=== PATIENT | female | born 1950 | race Caucasian/White ===

== ENCOUNTER 2024-12-27 10:26 | Emergency (ER) | payer BC, MEDICARE ==
[~2024-12-27] VITALS: Ht 162.6 cm; Wt 104.5 kg
[2024-12-27 11:02] LABS: MEAN PLATELET VOLUME 6.6 FL (7.4-10.4); RED CELL DISTRIBUTION WIDTH 15.7 % (11.5-14.5)
[2024-12-27 11:08] LABS: LEUKOCYTE ESTERASE ,URINE NEGATIVE (Neg); NITRITES, URINE NEGATIVE (Neg); OCCULT BLOOD,URINE SMALL (Neg)
[2024-12-27 11:12] LABS: UA COLLECTION TYPE CLN CATCH MIDSTREAM
[2024-12-27 11:14] LABS: SQUAMOUS EPITHELIAL CELL,UR MANY /LPF (FEW)
[2024-12-27 11:15] LABS: INR 1.0 INR
[2024-12-27 11:17] LABS: APTT 29 SECONDS (22-32); CREATININE 0.88 MG/DL (0.40-0.90); TOTAL CARBON DIOXIDE 24.6 MMOL/L (24-32); eCRCL 47 ML/MIN; eGFR 62 ML/MIN
[2024-12-27 11:23] LABS: URIC ACID CRYSTALS FEW /HPF (NEGATIVE)
--- NOTE | 2024-12-27 14:23 | Physician Documentation ---
History of Present Illness Chief Complaint: Abdominal Pain Stated Complaint: ABD PAIN Time Seen by MD: 11:37 OK to notify your PCP?: Yes Primary Medical Doctor: gladis gotti Source: patient Mode of Arrival: POV Exam Limitations: no limitations HPI This is a 74-year-old female who comes in complaining of left lower quadrant abdominal pain that she has had for the past two days. The pain has been consistently in the left lower quadrant of the abdomen. She denies nausea vomiting diarrhea. She denies change in bladder habits. She states she has had some dark stools however these began after taking Pepto-Bismol. She denies chest pain or shortness of breath. She denies generalized weakness. She states back in 1970 she had both the gallbladder and her appendix taken out. Right now the patient is pleasant and in minimal pain. Medication Reconciliation Allergies: Coded Allergies: acetaminophen (Verified Allergy, Unknown, 12/27/24) hydrocodone (Verified Allergy, Unknown, 12/27/24) Physical Exam Vital Signs: Temperature: 98.4, Source: Temporal, Heart Rate: 57, Respiratory Rate: 15, BP: 159/72, Pulse Oximetry: 97, Weight: 104.550 Pulse Oximetry Reflects: adequate oxygenation General Appearance: alert, WD/WN, no apparent distress Respiratory: no respiratory distress Chest: no accessory muscle use Gastrointestinal To inspection of the abdomen no obvious distention. There was minimal tenderness to palpation of the left lower quadrant of the abdomen. No rigidity rebound or guarding. Progress Results/Orders Results/Orders Vital Signs 12/27/24 10:31 Temp 98.4 Pulse 57 Resp 15 B/P (MAP) 159/72 Pulse Ox 97 Laboratory Tests Test 12/27/24 10:36 12/27/24 10:48 12/27/24 12:58 Urine Specimen Description Cln catch midstream Urine Color Yellow Urine Clarity Slightly cloudy Urine pH 6.0 Urine Specific [place] 1.025 Urine Protein 30 H Urine Glucose (UA) Negative Urine Ketones Trace H Urine Occult Blood Small Urine Nitrite Negative Urine Bilirubin Small Urine Urobilinogen 0.2 Urine Leukocyte Esterase Negative Urine RBC 3-10 Urine WBC 0-4 Urine Squamous Epithelial Cells Many Urine Transitional Epithelial Cells Few Urine Uric Acid Crystals Few Urine Bacteria Few Urine Culture Indicated Not ind Volume Urine Centrifuged 2 ml Urine Comment Low volume White Blood Count 6.7 Red Blood Count 4.42 Hemoglobin 13.3 Hematocrit 39.6 Mean Corpuscular Volume 89.6 Mean Corpuscular Hemoglobin 30.1 Mean Corpuscular Hemoglobin Concent 33.6 Red Cell Distribution Width 15.7 H Platelet Count 280 Mean Platelet Volume 6.6 L Neutrophils (%) (Auto) 67.7 Lymphocytes (%) (Auto) 22.5 Monocytes (%) (Auto) 8.6 Eosinophils (%) (Auto) 0.6 Basophils (%) (Auto) 0.6 Neutrophils # (Auto) 4.5 Lymphocytes # (Auto) 1.5 Monocytes # (Auto) 0.6 Eosinophils # (Auto) 0.0 Basophils # (Auto) 0.0 CBC Comment Prothrombin Time 10.6 INR International Normalized Ratio 1.0 Activated Partial Thromboplast Time 29 Coagulation Comments Sodium Level 137 Potassium Level 3.9 Chloride Level 102 Carbon Dioxide Level 24.6 Anion Gap 10 Blood Urea Nitrogen 18 Creatinine 0.88 Estimated GFR/1.73 m2 62 BUN/Creatinine Ratio 20.5 H Glucose Level 96 Calcium Level 9.0 Magnesium Level 2.0 Total Bilirubin 0.9 Aspartate Amino Transf (AST/SGOT) 39 H Alanine Aminotransferase (ALT/SGPT) 69 Alkaline Phosphatase 93 Troponin I High Sensitivity 16 17 Total Protein 7.4 Albumin 3.6 Globulin 3.8 Albumin/Globulin Ratio 0.9 L Lipase 17 Chemistry Comments Troponin I High Sens Percent Delta 6 Troponin I Hi Sens Absolute Change 1 Medical Decision Making Findings The patient's lab work was all unremarkable as was a urine. With the CT abdomen and pelvis with IV contrast showed sigmoid diverticulitis with stranding however no evidence of microperforation or abscess. I gave the patient Levaquin 750 mg IV and 500 of Flagyl IV here in the ER p.o. we will continue with Levaquin and Flagyl for home with the instructions start a clear liquid supplement diet and stay away from foods that are hard to digest such as these in his. Follow up with the primary care physician for recheck in the next one or two days and return to the ER for any worsening or concerning symptoms. Additional Comments Nonspecific abdominal pain. UTI. Pyelonephritis. Kidney stone. Diverticulitis. Colitis Departure Disposition: HOME / SELF CARE / HOMELESS Impression: Primary Impression: Sigmoid diverticulitis Condition: Stable Discharge Instructions: Diverticulitis Additional Instructions: Take the medications as prescribed. Keep herself well hydrated. Start a clear liquid supplement diet. As we discussed stay away from foods that are hard to digest such as seeds and nuts. Follow up with the primary care physician for recheck in the next one or two days and return to the ER if you have any worsening or concerning symptoms. Referrals: NO PRIMARY CARE PROVIDER (PCP) Prescriptions Metronidazole* (Flagyl*) 500 Mg Tablet 1 TAB PO BID for 10 Days, #20 TAB Prov: NIRMAL KIM 12/27/24 Levofloxacin (Levofloxacin) 500 Mg Tablet 1 TAB PO DAILY for 10 Days, #10 TAB Prov: NIRMAL KIM 12/27/24 Signature Scribe Signature: No scribe Attestation: The note accurately reflects work and decisions made by me.Nirmal TIAN 12/27/24 16:45 NIRMAL KIM Dec 27, 2024 14:23
[2024-12-27] MEDS ORDERED: metroNIDAZOLE-Flagyl 750mg/NS 150 ML IV ONE (14:45)
[2024-12-27] MEDS: levoFLOXACIN-Levaquin 750MG/D5 150 ML IV STA (14:51)
--- NOTE | 2024-12-27 16:37 | RADIOLOGY REPORT ---
Procedure: CT CTA ABDOMEN PELVIS HISTORY: Lower abdominal pain, melena Comparison Study: None Exam Date:12/27/2024 02:34 PM TECHNIQUE: CTA scanner volumetric data acquisition of abdomen and pelvis was obtained following intravenous admi nistration of intravenous contrast without any reported adverse effects. Axial images were reconstru cted and additional sagittal and coronal images were reformatted. arterial phase imaging were perfor med. Postprocessing was also performed on a Separate workstation. 3D images were performed on a dedicated workstation and reviewed for reporting. Radiation Dose : CT Dose: CTDI volume is 30.6 mGy. Dose-length product is 4536 mGy*cm FINDINGS: Vascular: No acute GI hemorrhage identified. No evidence of aortic aneurysm or dissection Lung Bases: No acute or significant lung base finding. Normal heart size. No pleural or pericardial effusion. Liver: The liver is normal in size. No focal lesions. Normal hepatic vascular enhancement. Gallbladder and Biliary Tree: Gallbladder is surgically absent. Spleen: Unremarkable Pancreas: The pancreas is normal in appearance without focal lesions or abnormal enhancement. Adrenal Glands: Unremarkable Kidneys: Kidneys demonstrate normal symmetric enhancement without focal lesions, calculi or hydroneph rosis. Bladder: Unremarkable Bowel: The stomach is grossly normal in appearance. No bowel obstruction. Acute sigmoid diverticulit is with surrounding fat stranding. No discernible abscess identified. The appendix is not visualize d; however, no secondary findings of acute appendicitis identified. Ascites: Absent Lymphadenopathy: No mesenteric, retroperitoneal or periportal lymphadenopathy. Abdominal Wall and Mesentery: Trace fat containing umbilical hernia. Vasculature: The visualized abdominal aorta is normal in size and caliber. Abdominal and pelvic vess els demonstrate normal enhancement. Pelvic Organs: Unremarkable Musculoskeletal: No aggressive focal bony lesions, acute fractures or dislocation. Degenerative smith es throughout the lumbar spine IMPRESSION: 1. No evidence of acute GI hemorrhage. 2. Acute sigmoid diverticulitis with surrounding fat stranding. No discernible abscess identified.
[2024-12-27] MEDS ORDERED: LEVO-65 PO (16:45)
[2024-12-27] MEDS ORDERED: METR-159 PO (16:45)
[2024-12-27 16:59] VITALS: BP 160/62; PULSE 55; RESP 18; TEMP 98.4; O2SAT 98
--- NOTE | 2024-12-28 08:55 | ELECTROCARDIOGRAPH REPORT ---
[facility] Test Date: 2024-12-27 Test Time: 11:06:56 Pat Name: DALTON GARNER Department: EMERGENCY ROOM Room: Gender: F Respiratory Therapy Instructor: MIGUELANGEL : 1950 Requested By: KING RAYO Order Number: [id number] Reading MD: Measurements Intervals [place] Rate: 55 P: 47 AL: 185 QRS: 65 QRSD: 142 T: 45 QT: 466 QTc: 446 Interpretive Statements Sinus bradycardia Atrial premature complex Right bundle branch block Please click the below link to view image of tracing.
== END 2024-12-27 17:21 | disposition home or self-care (01) ==
LOC: ER 10:27
DX: K57.32 Diverticulitis of large intestine without perforation or abscess without bleeding (principal); Z88.5 Allergy status to narcotic agent; Z79.899 Other long term (current) drug therapy
CPT/HCPCS: 36415; 74174; 80053; 81001; 83690; 83735; 84484; 85025; 85610; 85730; 93005; 96365; 96367; 99285; J1956; J3490; Q9967